=== PATIENT | male | born 1945 | race Caucasian/White ===

== ENCOUNTER 2020-07-18 06:47 | Outpatient (CLI) | payer MEDICARE, OTHER ==
[2020-07-18 11:13] LABS: Bilirubin Neg (Negative); Blood, Urine 150 (Negative); Glucose, Urine (Dipstick) >=1000 mg/dL (Negative); Ketone, Urine Negative (Negative); Leukocyte 25 (Negative); Nitrite Positive (Negative); Protein, Urine (Dipstick) Negative (Neg-Trace); Urobilinogen Normal mg/dL (Less than 2)
[2020-07-18 11:15] LABS: Hemoglobin 11.8 g/dL (14.0-18.0); Mean Corpuscular HGB CONC 32.1 G/DL (32.0-36.0); Mean Corpuscular Hemoglobin 30.2 PG (27.0-33.0); Mean Corpuscular Volume 94.1 fl (80.0-100.0); Mean Platelet Volume 10.2 fl (7.4-10.4); Platelet Count 195 10x3/uL (130-400); RBC Distribution Width 14.3 % (11.5-14.5); Red Blood Cell (RBC) Count 3.91 10x6/uL (4.40-5.80); White Blood Cell (WBC) Count 4.7 10x3/uL (4.5-11.0)
[2020-07-18 11:33] LABS: PTT 23.5 sec (22.0-33.0); Prothrombin Time 10.4 sec (9.5-12.1)
[2020-07-18 11:38] LABS: Bacteria/HPF 3+ HPF (None Seen); RBC/HPF 0-3 HPF (0-3); Squamous Epithelial 0-3 HPF (0-3)
[2020-07-18 11:39] LABS: Triple Phosphate Crystal 3+ HPF (None Seen)
[2020-07-18 12:42] LABS: Anion Gap 20 mmol/L (10-20); BUN (Urea Nitrogen) 36 mg/dL (8.4-25.7); Calc. Creatinine Clearance 0 mL/min (70-130); Calcium 9.2 mg/dL (7.8-10.44); Carbon Dioxide 22 mmol/L (23-31); Chloride 103 mmol/L (98-107); Estimated GFR-MDRD 40; Glucose 239 mg/dL (83-110); Potassium 4.1 mmol/L (3.5-5.1); Sodium 141 mmol/L (136-145)
[2020-07-19 12:56] LABS: SARS-CoV-2 MS2 Positive; SARS-CoV-2 N Gene Negative; SARS-CoV-2 S Gene Negative; SARS-CoV-2 by NAA Not Detected (NotDetected); SARS-CoV-2 orf1ab Negative
== END 2020-07-18 06:48 | disposition home or self-care (01) ==
LOC: LABBT 06:47
PROVIDERS: ATTEND Urology
DX: Z01.812 Encounter for preprocedural laboratory examination (principal); N40.1 Benign prostatic hyperplasia with lower urinary tract symptoms; Z20.828 Contact with and (suspected) exposure to other viral communicable diseases
CPT/HCPCS: 80048; 81001; 85027; 85610; 85730; 87086; U0003; 87077; 87635

== ENCOUNTER 2020-07-21 07:06 | Day surgery (SDC) | payer MEDICARE, OTHER ==
[2020-07-20 14:25] VITALS: BMI 41.0
[2020-07-21] MEDS ORDERED: Levofloxacin 500 mg/D5W 100 ml Premix Bag ONE (08:25)
[2020-07-21] MEDS ORDERED: PROPOFOL 40 ML ONE (09:21)
[2020-07-21] MEDS ORDERED: Fentanyl 100 MCG/2 ML VIAL ONE ×2 (09:21→10:46)
[2020-07-21] MEDS ORDERED: Midazolam HCl 2 mg/2 ml Vial ONE (09:26)
[2020-07-21] MEDS ORDERED: Ketamine 50 MG/ML (10ML VIAL) ONE (09:26)
[2020-07-21] MEDS ORDERED: Lidocaine 1% PF 5 ML VIAL ONE (09:55)
[2020-07-21] MEDS ORDERED: EPHEDRINE 25 MG/5 ML SYRINGE ONE (09:55)
[2020-07-21] MEDS ORDERED: Succinylcholine 200 MG/10 ml SYRINGE FS ONE (09:55)
[2020-07-21] MEDS ORDERED: PROPOFOL 200 MG/20 ML VIAL ONE (09:55)
[2020-07-21] MEDS ORDERED: Ondansetron PF 4 MG/2 ML Vial ONE (09:55)
[2020-07-21] MEDS ORDERED: B & O ONE (10:13)
[2020-07-21] MEDS ORDERED: Ketorolac Tromethamine 30 MG/ML VIAL ONE (10:47)
[2020-07-21] MEDS ORDERED: Oxybutynin 5 MG TAB ONE (10:47)
--- NOTE | 2020-07-21 11:26 | OP ---
DATE OF PROCEDURE: 07/21/2020 PREOPERATIVE DIAGNOSIS: Enlarged prostate with lower urinary tract symptoms. POSTOPERATIVE DIAGNOSIS: Enlarged prostate with lower urinary tract symptoms. PROCEDURE PERFORMED: UroLift x12 implants. ANESTHESIA: General. COMPLICATIONS: None. ESTIMATED BLOOD LOSS: Minimal. SPECIMEN: None. DESCRIPTION OF PROCEDURE: After informed consent, the patient was taken to the operating room, transferred to the table on his own power. Anesthesia was established. A time-out was performed showing correct patient, site, and procedure. Preoperative antibiotics were administered. He was prepped and draped in the lithotomy position. The rigid cystoscope was advanced through the urethra noting a normal course and caliber of the urethra into the prostate noting large coapting lateral lobes with a moderately obstructing bladder neck with no median lobe. The bladder was entered and systematically examined noting trabeculation. Both ureters normal in appearance. A UroLift device was inserted and the first 2 implants were placed approximately 2 cm away from the bladder neck, one on the left, one on the right. The next 2 implants were delivered in the distal prostate near the apex. Two more implants on each side were delivered into the mid prostate achieving an adequate channel throughout the prostate. We did sustain 2 bone strikes, the left side near the bladder neck and 2 pull throughs, left side mid gland. At the end of the case, the patient was having some [id number] bleeding from the prostate and so I elected to place a 20-Spanish three way catheter, however, left the irrigation port plugged. This was draining very mildly hematuric urine. 20 mL were instilled in the balloon. He was then awoken from anesthesia, transferred back to his hospital bed, and taken to PACU in stable condition, where he will discharge home upon recovery with plans for void trial on Friday. Job ID: [id number]
== END 2020-07-21 13:15 | disposition home or self-care (01) ==
LOC: SDC 07:06
PROVIDERS: ATTEND Urology
PROC: 0T7D8DZ Dilation of Urethra with Intraluminal Device, Via Natural or Artificial Opening Endoscopic (ICD-10-PCS; principal; 2020-07-21)
DX: N40.1 Benign prostatic hyperplasia with lower urinary tract symptoms (principal); R33.8 Other retention of urine; I12.9 Hypertensive chronic kidney disease with stage 1 through stage 4 chronic kidney disease, or unspecified chronic kidney disease; E11.22 Type 2 diabetes mellitus with diabetic chronic kidney disease; N18.9 Chronic kidney disease, unspecified; I25.10 Atherosclerotic heart disease of native coronary artery without angina pectoris; J44.9 Chronic obstructive pulmonary disease, unspecified; D64.9 Anemia, unspecified; E66.9 Obesity, unspecified; Z68.41 Body mass index [BMI] 40.0-44.9, adult; Z79.02 Long term (current) use of antithrombotics/antiplatelets; Z79.4 Long term (current) use of insulin; Z79.82 Long term (current) use of aspirin; Z79.899 Other long term (current) drug therapy; Z87.891 Personal history of nicotine dependence
CPT/HCPCS: 82962; C1889; C9740; 36416; J1885; J1956; J2250; J2405; J2704; J3010

== ENCOUNTER 2021-07-05 10:23 | Outpatient (CLI) | payer MEDICARE, OTHER ==
[2021-07-05 11:52] LABS: Hemoglobin 10.7 g/dL (13.5-17.5); Mean Corpuscular Hemoglobin 29.3 pg (27.0-33.0); Mean Corpuscular Volume 94.5 fl (81.2-95.1); Mean Platelet Volume 10.2 fl (7.4-10.4); Platelet Count 218 10x3/uL (150-450); RBC Distribution Width 14.7 % (11.5-14.5); Red Blood Cell (RBC) Count 3.65 10x6/uL (4.32-5.72); White Blood Cell (WBC) Count 4.6 10x3/uL (3.5-10.5)
[2021-07-05 12:13] LABS: Anion Gap 12 mmol/L (10-20); BUN (Urea Nitrogen) 32 mg/dL (8.4-25.7); Calc. Creatinine Clearance 0 mL/min (70-130); Calcium 8.6 mg/dL (7.8-10.44); Carbon Dioxide 25 mmol/L (23-31); Chloride 108 mmol/L (98-107); Glucose 120 mg/dL (83-110); Potassium 4.4 mmol/L (3.5-5.1); Sodium 141 mmol/L (136-145)
[2021-07-05 17:39] LABS: SARS-CoV-2 PCR by NAA Not Detected (NotDetected)
== END 2021-07-05 10:24 | disposition home or self-care (01) ==
LOC: LABBT 10:23
PROVIDERS: ATTEND Urology
DX: Z01.818 Encounter for other preprocedural examination (principal); N40.1 Benign prostatic hyperplasia with lower urinary tract symptoms; E66.01 Morbid (severe) obesity due to excess calories; Z20.822 Contact with and (suspected) exposure to COVID-19
CPT/HCPCS: 80048; 85027; U0003; U0005; 93005; 93010

== ENCOUNTER 2021-07-10 05:48 | Observation (INO) | payer MEDICARE, OTHER ==
[2021-07-09 11:53] VITALS: BMI 40.3
[2021-07-10] MEDS ORDERED: Levofloxacin 500 mg/D5W 100 ml Premix Bag ONE (06:36)
[2021-07-10] MEDS ORDERED: Fentanyl 100 MCG/2 ML VIAL ONE ×2 (06:54→09:26)
[2021-07-10] MEDS ORDERED: Lidocaine 1% PF 5 ML VIAL ONE (07:49)
[2021-07-10] MEDS ORDERED: Ondansetron PF 4 MG/2 ML Vial ONE (07:49)
[2021-07-10] MEDS ORDERED: Dexamethasone 20 MG/5 ML VIAL ONE (07:49)
[2021-07-10] MEDS ORDERED: PROPOFOL 200 MG/20 ML VIAL ONE (07:49)
[2021-07-10] MEDS ORDERED: hydrALAZINE 20 MG/ML VIAL ONE (10:34)
[2021-07-10] MEDS ORDERED: hydrALAZINE 20 MG/ML VIAL SLOW IVP PRN (11:33)
[2021-07-10] MEDS ORDERED: Zolpidem Tartrate 5 MG TAB PO PRN (11:33)
[2021-07-10] MEDS ORDERED: Oxybutynin 5 MG TAB PO PRN (11:33)
[2021-07-10] MEDS ORDERED: Hyoscyamine Sulfate SL 0.125 mg Tablet SL PRN (11:33)
[2021-07-10] MEDS ORDERED: Ipratropium Bromide 2.5 ml Neb NEB PRN (11:33)
[2021-07-10] MEDS ORDERED: Ondansetron PF 4 MG/2 ML Vial IVP PRN (11:33)
[2021-07-10] MEDS ORDERED: Ketorolac Tromethamine 30 MG/ML VIAL IVP PRN (11:33)
[2021-07-10] MEDS ORDERED: diphenhydrAMINE 50 MG/ML VIAL IVP PRN (11:33)
[2021-07-10] MEDS ORDERED: HYDROcodone/Acetaminophen 5/325 mg Tablet PO PRN (11:33)
[2021-07-10] MEDS: Sodium Chloride 0.9% 1,000 ML IV SCH ×2 (14:20→20:05)
[2021-07-10] MEDS ORDERED: Morphine 4 MG/ML VIAL SLOW IVP PRN (14:24)
[2021-07-10] MEDS ORDERED: Spironolactone 25 MG TAB PO SCH (15:00)
[2021-07-10] MEDS ORDERED: Aspirin 81 mg Enteric Coated Tablet PO SCH (15:00)
[2021-07-10] MEDS ORDERED: Fenofibrate Nanocrystallized 145 MG TAB PO SCH (15:00)
[2021-07-10] MEDS ORDERED: Lantus 1000 UNITS/10 ML VIAL SC SCH ×2 (15:00→21:00)
[2021-07-10] MEDS ORDERED: Nebivolol HCl 5 MG TAB PO SCH (15:00)
[2021-07-10] MEDS ORDERED: glipiZIDE 5 MG TAB PO SCH (15:00)
[2021-07-10] MEDS ORDERED: Furosemide 40 MG TAB PO SCH (15:00)
[2021-07-10] MEDS ORDERED: Potassium Chloride 20 MEQ TAB PO SCH (15:00)
[2021-07-10] MEDS ORDERED: Famotidine/PF 20 mg/2ml Vial SLOW IVP SCH (15:00)
[2021-07-10] MEDS ORDERED: Losartan 25 MG TAB PO SCH (15:00)
[2021-07-10] MEDS ORDERED: Amlodipine 10 MG TAB PO SCH (15:00)
[2021-07-10] MEDS: hydrALAZINE 25 MG TAB PO SCH ×2 (15:36→20:06)
[2021-07-10] MEDS ORDERED: Ciprofloxacin 500 MG TAB PO SCH (16:15)
[2021-07-10] MEDS: Furosemide 40 MG TAB PO SCH (20:05)
[2021-07-10] MEDS: Famotidine/PF 20 mg/2ml Vial SLOW IVP SCH (20:05)
[2021-07-10] MEDS: Ciprofloxacin 500 MG TAB PO SCH (20:06)
[2021-07-10] MEDS: glipiZIDE 5 MG TAB PO SCH (20:06)
[2021-07-10] MEDS ORDERED: Atorvastatin Calcium 10 MG TAB PO SCH (21:00)
[2021-07-11] MEDS ORDERED: Losartan 25 MG TAB PO SCH (09:00)
[2021-07-11] MEDS ORDERED: Fenofibrate Nanocrystallized 145 MG TAB PO SCH (09:00)
[2021-07-11] MEDS ORDERED: FLU VACC QS2021-22(65YR UP)/PF 240 MCG/0.7 ML SYRINGE IM ONE (09:00)
[2021-07-11] MEDS ORDERED: Potassium Chloride 20 MEQ TAB PO SCH (09:00)
[2021-07-11] MEDS ORDERED: Aspirin 81 mg Enteric Coated Tablet PO SCH (09:00)
[2021-07-11] MEDS ORDERED: Amlodipine 10 MG TAB PO SCH (09:00)
[2021-07-11] MEDS ORDERED: Nebivolol HCl 5 MG TAB PO SCH (09:00)
[2021-07-11] MEDS ORDERED: Spironolactone 25 MG TAB PO SCH (09:00)
[2021-07-11] MEDS ORDERED: Lantus 1000 UNITS/10 ML VIAL SC SCH (09:00)
[2021-07-11] MEDS: hydrALAZINE 25 MG TAB PO SCH (09:19)
[2021-07-11] MEDS: glipiZIDE 5 MG TAB PO SCH (09:20)
[2021-07-11] MEDS: Furosemide 40 MG TAB PO SCH (09:21)
[2021-07-11] MEDS: Ciprofloxacin 500 MG TAB PO SCH (09:22)
[2021-07-11] MEDS: Famotidine/PF 20 mg/2ml Vial SLOW IVP SCH (09:23)
[2021-07-11 11:55] VITALS: BP 163/69; TEMP 97.9
== END 2021-07-11 12:47 | disposition home or self-care (01) ==
LOC: SDC 05:48 → SJJU 11:33
PROVIDERS: ADMIT Urology; ATTEND Urology
PROC: 0VT08ZZ Resection of Prostate, Via Natural or Artificial Opening Endoscopic (ICD-10-PCS; principal; 2021-07-10)
DX: N40.1 Benign prostatic hyperplasia with lower urinary tract symptoms (principal); R33.8 Other retention of urine; I25.10 Atherosclerotic heart disease of native coronary artery without angina pectoris; J44.9 Chronic obstructive pulmonary disease, unspecified; I12.9 Hypertensive chronic kidney disease with stage 1 through stage 4 chronic kidney disease, or unspecified chronic kidney disease; E11.22 Type 2 diabetes mellitus with diabetic chronic kidney disease; N18.9 Chronic kidney disease, unspecified; D63.1 Anemia in chronic kidney disease; E66.01 Morbid (severe) obesity due to excess calories; Z68.41 Body mass index [BMI] 40.0-44.9, adult; Z87.891 Personal history of nicotine dependence; Z79.2 Long term (current) use of antibiotics; Z79.4 Long term (current) use of insulin; Z79.82 Long term (current) use of aspirin; Z79.84 Long term (current) use of oral hypoglycemic drugs; Z79.899 Other long term (current) drug therapy; Z95.820 Peripheral vascular angioplasty status with implants and grafts
CPT/HCPCS: 36416; 88305; 96374; 96376; G0378; J0360; J1100; J1815; J1956; J2405; J2704; J3010; J7050; S0028